=== PATIENT | female | born 1995 | race African-American/Black ===

== ENCOUNTER 2020-10-08 22:09 | Observation (INO) | payer MEDICAID ==
[~2020-10-08] VITALS: Ht 170.2 cm; Wt 95.3 kg
[2020-10-08 22:15] VITALS: BP 120/74
== END 2020-10-09 00:02 | disposition home or self-care (01) ==
LOC: MLD 22:09
PROVIDERS: ADMIT Obstetrics & Gynecology; ATTEND Obstetrics & Gynecology
DX: O36.8130 Decreased fetal movements, third trimester, not applicable or unspecified (principal); Z3A.37 37 weeks gestation of pregnancy
CPT/HCPCS: 76819; G0378